=== PATIENT | female | born 1945 | race Caucasian/White ===

== ENCOUNTER → 2017-05-14 10:40 | Outpatient (CLI) | payer MEDICARE, SELFPAY ==
[2017-05-14 11:50] LABS: Microalbumin,Random Urine 27.3 mg/L (NO RANGE EST.); Microalbumin:Creatinine Ratio 19.1 mg/g CRE (<30 mg/g CRE)
[2017-05-14 11:53] LABS: Hemoglobin A1c 5.7 % (4.2-6.3)
[2017-05-14 12:00] LABS: Anion Gap 6 (5-15); BUN 20 mg/dL (7-18); BUN/Creat Ratio 24.2 RATIO (10-20); Calcium,Total 8.8 mg/dL (8.5-10.1); Chloride 108 mmol/L (98-107); Cholesterol 240 mg/dL (200); Creatinine, Serum 0.83 mg/dL (0.55-1.02); EST Glomerular Filtration Rate 72 mL/min (>60); Est Glom Filt Rate - Afr Amer 87 mL/min (>60); Glucose 95 mg/dL (74-106); High Density Lipoprotein 63 mg/dL; Potassium 3.8 mmol/L (3.5-5.1); Sodium Level 143 mmol/L (136-145); Thyroid Stim Hormone (TSH) 2.31 uIU/mL (0.358-3.74); Triglycerides 85 mg/dL; Very Low Density Lipoprotein 17 mg/dL (5-40)
== END ==
PROVIDERS: Family Provider Family Medicine; PCP Family Medicine; Visit Provider Family Medicine
DX: E11.9 Type 2 diabetes mellitus without complications (principal); Z79.899 Other long term (current) drug therapy; E78.2 Mixed hyperlipidemia
CPT/HCPCS: 36415; 80048; 80061; 82043; 82570; 83036; 84443

== ENCOUNTER → 2017-05-25 16:21 | Outpatient (CLI) | payer MEDICARE, SELFPAY ==
--- NOTE | 2017-05-25 16:41 | MRI_ITS ---
STUDY: MRI THORACIC SPINE WITHOUT CONTRAST REASON FOR EXAM: Female, 71 years old. Upper back pain TECHNIQUE: Standardized fat and water weighted pulse sequences were obtained in the sagittal and axial planes. COMPARISON: None. FINDINGS: Normal kyphosis of the thoracic spine. There is no substantial scoliosis. No evidence for acute fracture or subluxation. The intervertebral disc space heights are fairly well-maintained however there is desiccation of the discs at all levels secondary to degeneration. There is mild multilevel bulging of the discs but no focal disc protrusion spinal stenosis or cord compression. Normal visualized thoracic cord. Normal conus medullaris that terminates at T12-L1 The soft tissue structures are unremarkable. MRI/Spine Thoracic (Routine) IMPRESSION: No evidence for acute fracture or other significant bony pathology. Multilevel disc degeneration and mild bulging of the annuli without focal disc protrusion spinal stenosis or cord compression. Electronically Signed: Jeremy Gonzalse MD at 17:46 EDT , Service support ,
== END ==
PROVIDERS: Family Provider Family Medicine; PCP Family Medicine; Visit Provider Anesthesiology Pain Medicine
DX: M47.814 Spondylosis without myelopathy or radiculopathy, thoracic region (principal)
CPT/HCPCS: 72146

== ENCOUNTER → 2017-07-21 09:37 | Outpatient (CLI) | payer MEDICARE, SELFPAY ==
--- NOTE | 2017-07-21 09:23 | BD_ITS ---
STUDY: DUAL ENERGY X-RAY ABSORPTIOMETRY / DXA REASON FOR EXAM: Female, 72 years old. Type II diabetic postmenopausal female. Takes Fosamax. TECHNIQUE: Bone Mineral Density (BMD) measurements of lumbar spine and bilateral hips were obtained. COMPARISON: February 13, 2013. FINDINGS: Lumbar Spine (L1-L4): g/cm2 (1.235) / T-score (0.5) / Z-score (2.2) Findings are suggestive of PICC line with a low fracture risk. Left Femur Total: g/cm2 (0.901) / T-score (0.8) / Z-score (0.7) Left Femoral Neck: g/cm2 (0.796) / T-score (-1.7) / Z-score (0.0) Right Femur Total: g/cm2 (0.915) / T-score (-0.7) / Z-score (0.8) Right Femoral Neck: g/cm2 (0.739) / T-score (-2.1) / Z-score (-0.4) The T-Scores on the most recent prior examination were: Lumbar Spine (L1-L4): There has been improvement of bone density since the previous examination of 12%. Left Femur Total: There is no improvement in the bone mineral density of 11.9% since the prior study. Right Femur Total: There is improvement of the bone mineral density of 9.2% since the prior study. BD/Dexa Bone Density Study IMPRESSION: The patient is considered osteopenic as outlined below according to World Bub[employer] Organization (WHO) criteria with a moderate fracture risk. There has been improvement of bone density since the previous examination. Reference Information: The T-score is the number of standard deviations above or below the standard which is normal for young adults at their peak bone mineral density. The World Health Organization (WHO) interprets the T-scores as follows: Above -1 Normal bone density Between -1 and -2.5 Osteopenia Equal to / or below -2.5 Osteoporosis As a practical clinical guideline, osteopenia may be graded as follows: Mild -1 through -1.5 Moderate -1.6 through -2.0 Severe -2.1 through -2.4 The Z-score is the number of standard deviations above or below age-matched controls. A Z-score of less than -1.5 would be considered abnormal. References: 1. NIH Osteoporosis and Related Bone Diseases http://www.osteo.org 2. International Society for Clinical Densitometry http://www.iscd.org 3. National Osteoporosis Foundation http://www.nof.org Electronically Signed: Lee Steward DO at 10:52 EDT Tel [phone], Service support ,
--- NOTE | 2017-07-21 09:35 | BI_ITS ---
MAMMOGRAPHY - BILATERAL SCREENING REASON FOR EXAM: Female, 72 years old. Routine annual screening examination. PERTINENT HISTORY: Non-contributory. TECHNIQUE: Digital bilateral breast nettie (3D mammographic acquisition) in the CC and MLO projections. 2-D mediolateral oblique (MLO) and craniocaudad (CC) views of both breasts were obtained. CAD: Full Field Digital Mammography with Computer Added Detection was performed. COMPARISON: Comparison is made with prior study dated June 15, 2016 and July 20, 2015. FINDINGS: Breast Composition: There are scattered areas of fibroglandular density. There are no dominant masses or suspicious calcifications. No other significant abnormalities are identified. There has been no significant change since the prior study. BI/SCREENING MAMM (CAD), BILAT IMPRESSION: Stable bilateral screening mammogram. Yearly follow-up mammogram recommended. (A) ASSESSMENT CATEGORY: BIRADS Category 1: Negative. A letter regarding these results will be sent to the patient by the facility within 30 days. Approximately 10% of breast cancers are not detected by mammography. A normal mammogram should not delay biopsy of a clinically suspicious abnormality. [id number] Electronically Signed: Smith Ceballos MD at 8:21 EDT Tel [phone], Service support ,
--- NOTE | 2017-07-21 09:37 | DT_ITS ---
This patient was seen during an EMR downtime July 18, 2017 - July 25, 2017. This patient may have a combination of paper and electronic documentation or all paper documentation. All documentation is viewable within the e-chart portion of [facility] for each patient visit.
== END ==
LOC: OPBI 07-28 13:54 → OPBD 07-28 13:54
PROVIDERS: Family Provider Family Medicine; PCP Family Medicine; Visit Provider Family Medicine
DX: M81.0 Age-related osteoporosis without current pathological fracture (principal); Z12.31 Encounter for screening mammogram for malignant neoplasm of breast
CPT/HCPCS: 77063; 77067; 77080

== ENCOUNTER 2017-08-14 20:33 | Observation (INO) | payer MEDICARE, SELFPAY ==
[2017-08-14 20:34] VITALS: BP 182/96; PULSE 90; PULSE 95; RESP 14; RESP 18; TEMP 36.8; O2SAT 98; BMI 37.0
--- NOTE | 2017-08-14 20:34 | ED.RN ---
CALLED FOR EKG PER RN REQUEST, PULLED OLD EKG'S FOR
--- NOTE | 2017-08-14 20:46 | EKG12_ITS ---
Test Reason : ADMIN Blood Pressure : / mmHG Vent. Rate : 099 BPM Atrial Rate : 099 BPM P-R Int : 128 ms QRS Dur : 096 ms QT Int : 346 ms P-R-T Axes : 039 005 059 degrees QTc Int : 444 ms Normal sinus rhythm Nonspecific ST abnormality Abnormal ECG When compared with ECG of 02-FEB-2012 10:26, No significant change was found Confirmed by POOJA LUNA, RAFAEL ([id number]), kettle fry cook operator MAYRA MELGOZA ([id number]) on 08/18/2017 3:55:01 PM Referred By: PETE Confirmed By:RAFAEL PATTON MD
--- NOTE | 2017-08-14 20:48 | RAD_ITS ---
STUDY: X-RAY CHEST REASON FOR EXAM: Female, 72 years old. Chest and left arm pain. TECHNIQUE: Single frontal view of the chest. COMPARISON: February 13, 2013 FINDINGS: There is low volume inspiration with a mild diffuse interstitial pattern unchanged. There are no focal consolidations. There is no demonstrated pleural abnormality. There is borderline cardiomegaly unchanged. Normal mediastinum and chelsie. Normal visualized pulmonary arteries. There is aortic tortuosity with calcification unchanged. Normal visualized thoracic spine. Normal visualized ribs, clavicles, and shoulders. There is no demonstrated abnormality of the visualized soft tissue structures of the upper abdomen. RAD/Chest 1 View (Portable) IMPRESSION: Stable appearance of the chest with no significant new or acute pathology. Electronically Signed: Mainor Hastings MD at 21:12 EDT , Service support ,
[2017-08-14] MEDS: Aspirin 81 MG TAB.CHEW 324 MG PO (21:10)
[2017-08-14 21:12] VITALS: BP 145/92; PULSE 90
[2017-08-14 21:16] VITALS: BP 140/68; PULSE 104
[2017-08-14 21:17] LABS: Anion Gap 7 (5-15); BUN 37 mg/dL (7-18); BUN/Creat Ratio 37.6 RATIO (10-20); Calcium,Total 8.8 mg/dL (8.5-10.1); Chloride 104 mmol/L (98-107); Creatinine, Serum 0.98 mg/dL (0.55-1.02); EST Glomerular Filtration Rate 59 mL/min (>60); Est Glom Filt Rate - Afr Amer 72 mL/min (>60); Estimated Creatinine Clearance 39.16 ml/min; Glucose 99 mg/dL (74-106); Sodium Level 140 mmol/L (136-145)
[2017-08-14 21:21] VITALS: BP 133/67; PULSE 108
--- NOTE | 2017-08-14 21:34 | ED.VISSUMM ---
- ER Visit Summary Date of Service: 08/14/17 Chief Complaint: Chest pain History of Present Illness: The patient is a 72 F who presents with chest pain that began today. Patient states the pain began in her left shoulder and has migrated to the upper chest in the midline. Patient describes the pain as a dull ache. Patient states the pain began approximate 1 hour prior to arrival. Patient states she was sitting and watching TV when the pain began. Patient states she did have an episode of diaphoresis. Patient denies any nausea or vomiting. Patient denies any shortness of breath. Patient denies any cough or fever. Patient states nothing makes the pain better or worse. Cardiac risk factors include hypertension, diabetes, hypercholesterolemia, and family history of coronary artery disease. Physical Examination: Vital signs are stable. Patient is afebrile. Patient is in no acute distress. Oral mucosa is pink and moist. Neck is supple. Trachea is midline. There is no JVD noted. Heart was regular rate and rhythm. Lungs are clear and equal bilaterally. Abdomen is soft and nontender. Cranial nerves II through XII are intact. There are no focal motor or sensory deficits noted. The remaining physical exam is within normal limits. Test Results: EKG showed normal sinus rhythm with a rate of 94. There are nonspecific ST-T wave changes noted. There are no changes compared to previous EKG dated 02/02/2012. Chest x-ray does not show any acute cardiopulmonary process. CBC, basic metabolic profile, and troponin were obtained and were essentially within normal limits. Emergency Department Course and Treatment: Patient was given aspirin and 3 sublingual nitroglycerin tablets here. Patient states her chest pain actually got worse after the nitroglycerin. Patient also complained of a headache after that. Patient was given Tylenol. Patient states her chest pain has moved from her upper chest to her middle chest. Patient was given injection of morphine for that. Patient has a HEART score of 6. Case was discussed with Dr. Stubbs. He will be in to evaluate the patient and admit the patient to the hospital. Disposition: Admit to the hospital Impression: Chest pain This note was generated with [employer] dictation software. It may contain incorrect words, spelling, and punctuation that were not noted in review of the chart prior to signing ED Disposition - Plan for ED Patient: Disposition: Acute Care Hospital [facility] Chief Complaint: Chest Pain Diagnosis: Chest pain Referrals: Zia Bolden MD [Primary Care Provider] -
--- NOTE | 2017-08-14 21:39 | ED.DCSUM_ITS ---
- ER Visit Summary Date of Service: 08/14/17 Chief Complaint: Chest pain History of Present Illness: The patient is a 72 F who presents with chest pain that began today. Patient states the pain began in her left shoulder and has migrated to the upper chest in the midline. Patient describes the pain as a dull ache. Patient states the pain began approximate 1 hour prior to arrival. Patient states she was sitting and watching TV when the pain began. Patient states she did have an episode of diaphoresis. Patient denies any nausea or vomiting. Patient denies any shortness of breath. Patient denies any cough or fever. Patient states nothing makes the pain better or worse. Cardiac risk factors include hypertension, diabetes, hypercholesterolemia, and family history of coronary artery disease. Physical Examination: Vital signs are stable. Patient is afebrile. Patient is in no acute distress. Oral mucosa is pink and moist. Neck is supple. Trachea is midline. There is no JVD noted. Heart was regular rate and rhythm. Lungs are clear and equal bilaterally. Abdomen is soft and nontender. Cranial nerves II through XII are intact. There are no focal motor or sensory deficits noted. The remaining physical exam is within normal limits. Test Results: EKG showed normal sinus rhythm with a rate of 94. There are nonspecific ST-T wave changes noted. There are no changes compared to previous EKG dated 02/02/2012. Chest x-ray does not show any acute cardiopulmonary process. CBC, basic metabolic profile, and troponin were obtained and were essentially within normal limits. Emergency Department Course and Treatment: Patient was given aspirin and 3 sublingual nitroglycerin tablets here. Patient states her chest pain actually got worse after the nitroglycerin. Patient also complained of a headache after that. Patient was given Tylenol. Patient states her chest pain has moved from her upper chest to her middle chest. Patient was given injection of morphine for that. Patient has a HEART score of 6. Case was discussed with Dr. Stubbs. He will be in to evaluate the patient and admit the patient to the hospital. Disposition: Admit to the hospital Impression: Chest pain This note was generated with [employer] dictation software. It may contain incorrect words, spelling, and punctuation that were not noted in review of the chart prior to signing ED Disposition - Plan for ED Patient: Disposition: Acute Care Hospital [facility] Chief Complaint: Chest Pain Diagnosis: Chest pain Referrals: Zia Bolden MD [Primary Care Provider] -
[2017-08-14 22:27] LABS: Absolute Lymphocyte Count 2.54 X10^3/ul (0.83-4.51); Absolute Neutrophil Count 5.3 X10^3/uL (2.0-7.7); Basophil# 0.02 X10^3/uL; Basophil% 0.2 % (0-1); Eosinophil# 0.12 X10^3/uL; Eosinophils% 1.4 % (0-5); Hematocrit 37.1 % (37-47); Hemoglobin 12.1 g/dl (12.0-15.0); Lymphocyte # 2.54 X10^3/ul (4.0); Lymphocyte % 28.6 % (19-41); Mean Corp Hgb Conc 32.6 g/gl (32-36); Mean Corpuscular Hgb 29.8 pg (27.0-32.0); Mean Corpuscular Volume 91.4 fL (81-99); Monocyte# 0.86 X10^3/uL; Monocyte% 9.7 % (0-10); Neutrophil # 5.31 X10^3/uL (2.7-7.7); Neutrophil % 59.9 % (47-70); Platelet Count 274 K/mm3 (150-450); RBC Distribution Width CV 15.5 % (11.6-14.6); RBC Distribution Width SD 52.1 fl (35.1-43.9); Red Blood Count 4.06 M/mm3 (4.2-5.4); White Blood Count 8.9 K/mm3 (4.4-11.0)
[2017-08-14 22:28] LABS: POSITIVE COUNT NO; POSITIVE DIFFERENTIAL NO; POSITIVE MORPHOLOGY NO
[2017-08-14] MEDS: Acetaminophen 500 MG Tablet 1000 MG PO (22:28)
[2017-08-14] MEDS: Morphine 2 MG/ML Syringe IV (23:12)
[2017-08-14 23:14] VITALS: BP 153/79; PULSE 100; RESP 19; O2SAT 96
--- NOTE | 2017-08-14 23:43 | PCM.HP.STD ---
Problem List (1) Chest pain Status: Acute Qualifiers: Chest pain type: precordial pain Qualified Code(s): R07.2 - Precordial pain History of Present Illness Date of Admission: 08/14/17 Chief Complaint: Precordial chest pain, left shoulder pain The patient is a 72 year old F who was seen in the emergency room at [facility] with complaints of left shoulder pain which started about approximately 7:30 PM tonight while at rest, the pain went into her upper precordial chest area, she describes the pain as being dull, breathing makes it worse, is not affected by position, it was not affected by activity. Patient denies any radiation into her neck or down her arms although she does state that it radiated into her upper mid back area briefly. Patient had a cardiac catheterization 4 years ago that was completely unremarkable, there is no evidence of any coronary artery disease at the time of that catheterization. It was never determined why the patient had chest pain at that time. Patient states she has had one other episode of chest pain recently while she was going to sleep but it was not the same intensity as the chest pain this evening. Evaluation in the emergency room included an EKG which showed normal sinus rhythm without evidence of ST-T wave changes, labs were remarkable for BUN of 37, troponin was 0.015, chest x-ray was unremarkable. Patient was given nitroglycerin in the emergency room without affecting the chest discomfort, it did cause a severe headache however, she was given morphine which seemed to relieve some of the chest discomfort. On physical examination in the ER, I was able to reproduce some of the chest pain by pressing on her mid chest area with my hand. Patient will be placed in observation status for chest pain, cardiac enzymes will be cycled, if they remain normal she will have a pharmacological stress test tomorrow morning. Past Medical History Allergies hydrocodone Allergy (Verified 08/14/17 20:34) Other metronidazole [From Flagyl] Allergy (Verified 08/14/17 20:34) Other Home Medications: Ambulatory Orders Medication Instructions Recorded Alendronate Sodium [Fosamax] 70 mg PO QWEEK 08/14/17 Gabapentin [Neurontin] 300 mg PO DAILY 08/14/17 Hydrochlorothiazide [Hctz] 25 mg PO DAILY 08/14/17 Lisinopril 20 mg PO DAILY 08/14/17 Meloxicam 15 mg PO DAILY 08/14/17 Omeprazole 20 mg PO DAILY 08/14/17 Rosuvastatin Calcium [Crestor] 20 mg PO DAILY 08/14/17 Tramadol HCl [Ultram] 50 mg PO BID 08/14/17 Surgical History: - - D and C Psychiatric History: No pertinent psych hx [employer] [place] History: No pertinent [employer] [place] history Lives: Spouse/ Significant Other Smoking Status: Never smoker Tobacco Use: Non-smoker Alcohol: None Drugs: None - *Family History Maternal History Items: Cancer - Colon cancer Paternal History Items: Heart Disease - from [place] at age 57 Review of Systems Constitutional: Denies: Anorexia, Chills, Fever, Night Sweats, Malaise, Weakness, Weight Change, Fatigue Eyes: Denies: Blurred vision, Cataracts, Conjunctivae Inflammation, Double vision, Drainage HEENT: Denies: Difficulty Hearing, Difficulty Swallowing, Dysphasia, Ear Pain, Eye Pain, Head Aches, Hearing Changes, Nasal bleeding, Nasal Congestion, Post Nasal Drip Cardiovascular: Reports: Chest Pain. Denies: Claudication, Chest Pressure, Chest Tightness, Edema, Heaviness, Light Headedness, Palpitations, Paroxysmal Noc. Dyspnea, Syncope Respiratory: Reports: Pleuritic Pain - Patient states the chest pain is made worse by deep breathing. Denies: Cough, Hemoptysis, Shortness of Breath, Shortness of breath at rest, Shortness of breath upon exertion, Sputum production, Wheezing Gastrointestinal: Denies: Abdominal Pain, Constipation, Diarrhea, Hematemesis, Hematochezia, Nausea, Melena, Vomiting Genitourinary: Denies: Dysuria, Frequency, Hematuria, Hesitancy, Incontinence, Nocturia, Urgency Gynecological: Denies: Breast symptoms Musculoskeletal: Reports: Back Pain - She has chronic upper and lower back pain. Denies: Foot Pain, Hand Pain, Joint Pain, Joint stiffness, Joint swelling, Joint Tenderness, Leg Pain, Neck Pain Skin: Denies: Dryness, Pruritis, Rash Neurological: Denies: Balance problems, Blurred vision, Double vision, Slurred speech, Difficulty swallowing, Focal weakness, Headaches, Incoordination, Numbness, Tingling Psychiatric: Denies: Anxiety, Depression, Homicidal Ideations, Suicidal Ideations Endocrine: Denies: Change in Body Habitus, Heat/ Cold Intolerance, Polydipsia, Polyuria Hematologic/ Lymphatic: Denies: Adenopathy, Anemia, Easy Bruising, Easy Bleeding, Petechiae, Purpura VTE Information - Inpt Only VTE Present on Admission: No VTE Mechan Device Prophylaxis: SCD's VTE Pharm Prophylaxis ordered?: No Reason prophylaxis not ordered:: Treatment Not Indicated Patient Problems: Active and Suspected Problems Chest pain (Acute) - Physical Exam General: Alert, Oriented x3, Cooperative, No apparent distress, Well developed, Well nourished HEENT: Atraumatic, PERRLA, EOMI, Normocephalic Oral: Moist Mucosa Neck: Supple, No JVD, Negative Carotid Bruits, No Nuchal Rigidity, Trachea Midline, Thyroid Normal Size and Texture Lungs: Clear to auscultation, Normal air movement, No rhonchi, No wheeze, No rales Cardiovascular: Regular rate, Regular Rhythm, Normal S1, Normal S2, No murmurs, No Ectopic Activity, PMI Normal, No rub noted, No Gallop Abdomen: Bowel Sounds Present, Soft, Non Tender, Non-Distended, No hernias noted Extremities: No clubbing, No cyanosis, No edema, Capillary Refill Less than 3 Seconds Skin: No rashes, No breakdown Musculoskeletal: Arthritic Changes - In the hands, Tenderness - There is tenderness over the upper sternal area to pressure Neurological: Cranial nerves II-XII grossly intact, Neuro grossly intact, Muscle tone normal, Sensory exam intact to light touch and pain Psych/Mental Status: Normal Affect, Appropriate, Alert and oriented to time, place, person, mood and affect Vital Signs Temp Pulse Resp BP Pulse Ox 98.2 F 100 19 H 153/79 H 96 08/14/17 20:34 08/14/17 23:14 08/14/17 23:14 08/14/17 23:14 08/14/17 23:14 Oxygen Flow Rate (L/min) 2 Oxygen Delivery Method Room Air Weight: 89.1 kg Body Mass Index (BMI) 37.0 Laboratory Tests Past 24 Hrs 08/14/17 08/14/17 20:40 20:40 WBC 8.9 RBC 4.06 L Hgb 12.1 Hct 37.1 MCV 91.4 MCH 29.8 MCHC 32.6 RDW 15.5 H RDW Differential 52.1 H Plt Count 274 MPV 11.0 Immature Gran % (Auto) 0.200 Neut % (Auto) 59.9 Lymph % (Auto) 28.6 [place] % (Auto) 9.7 Eos % (Auto) 1.4 Baso % (Auto) 0.2 Absolute Neuts (auto) 5.3 Absolute Lymphs (auto) 2.54 Total Counted Not Reportable Sodium 140 Potassium 4.0 Chloride 104 Carbon Dioxide 29.0 Anion Gap 7 BUN 37 H Creatinine 0.98 Estim Creat Clear Calc 39.16 Est GFR (MDRD) Af Amer 72 Est GFR (MDRD) Non-Af 59 L BUN/Creatinine Ratio 37.6 H Glucose 99 Calcium 8.8 Troponin I < 0.015 Assessment/Plan All Active Problems Chest pain (Acute) #1 precordial chest pain-appears atypical for anginal chest pain-patient will be placed in observation status on PCU, enzymes will be cycled, she will be monitored, if enzymes remain normal she will have a pharmacological nuclear stress test tomorrow morning. Patient's chest pain complaints appear at least partially pleuritic in nature. Patient also has significant degenerative disc disease in her thoracic spine and this may be playing a part in her chest discomfort. 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
[2017-08-14 23:53] VITALS: BP 139/69; PULSE 95; RESP 14; O2SAT 95
--- NOTE | 2017-08-14 23:55 | NURSING ---
Called ED charge nurse Rob telling him OK to send pt. to PCU. Requested that he draw second troponin prior to sending to PCU as it was due at 2340. oRb verbalized understanding and will draw troponin.
[2017-08-15] VITALS (7 sets, daily range): BP systolic 136–148; BP diastolic 64–89; PULSE 88–104; RESP 16–18; TEMP 36.9; O2SAT 96–99; BMI 37.6; BMI 37.7
--- NOTE | 2017-08-15 02:00 | EKG12_ITS ---
Test Reason : CP Blood Pressure : / mmHG Vent. Rate : 094 BPM Atrial Rate : 094 BPM P-R Int : 146 ms QRS Dur : 102 ms QT Int : 384 ms P-R-T Axes : 041 017 049 degrees QTc Int : 480 ms Normal sinus rhythm Nonspecific ST abnormality Abnormal ECG Confirmed by POOJA LUNA, RAFAEL ([id number]), scientific editor MAYRA MELGOZA ([id number]) on 08/18/2017 3:49:30 PM Referred By: ANITA Confirmed By:RAFAEL PATTON MD
[2017-08-15] MEDS: Atorvastatin Calcium 40 MG Tablet PO (02:43)
[2017-08-15] MEDS: Lisinopril 20 MG Tablet PO (05:57)
[2017-08-15 06:20] LABS: Absolute Neutrophil Count 9.7 X10^3/uL (2.0-7.7); Basophil# 0.02 X10^3/uL; Basophil% 0.2 % (0-1); Eosinophil# 0.07 X10^3/uL; Eosinophils% 0.5 % (0-5); Hematocrit 35.8 % (37-47); Hemoglobin 11.8 g/dl (12.0-15.0); Lymphocyte % 10.8 % (19-41); Mean Corpuscular Volume 91.1 fL (81-99); Mean Platelet Vol. 11.5 fl (6.2-12.0); Monocyte# 1.75 X10^3/uL; Monocyte% 13.5 % (0-10); Neutrophil # 9.73 X10^3/uL (2.7-7.7); Neutrophil % 74.7 % (47-70); Platelet Count 214 K/mm3 (150-450); Red Blood Count 3.93 M/mm3 (4.2-5.4)
[2017-08-15 06:26] LABS: Differential Indicated SCAN CRITERIA MET; POSITIVE COUNT NO; POSITIVE DIFFERENTIAL YES; POSITIVE MORPHOLOGY NO
[2017-08-15 06:31] LABS: Anion Gap 9 (5-15); BUN 33 mg/dL (7-18); BUN/Creat Ratio 41.4 RATIO (10-20); Calcium,Total 8.7 mg/dL (8.5-10.1); Chloride 108 mmol/L (98-107); EST Glomerular Filtration Rate 75 mL/min (>60); Est Glom Filt Rate - Afr Amer 91 mL/min (>60); Estimated Creatinine Clearance 47.97 ml/min; Glucose 101 mg/dL (74-106); Potassium 4.2 mmol/L (3.5-5.1); Sodium Level 144 mmol/L (136-145)
[2017-08-15 06:34] LABS: Partial Thromboplast Time 28.8 Seconds (24.1-36.2); Prothrombin Time (Protime)PT. 12.9 SECONDS (11.7-14.9)
[2017-08-15 07:15] LABS: Differential Comment SCANNED
[2017-08-15] MEDS: hydroCHLOROthiazide 25 MG Tablet PO (09:30)
[2017-08-15] MEDS: Pantoprazole Sodium 20 MG Tablet PO (09:30)
[2017-08-15] MEDS: traMADol 50 MG Tablet PO (09:30)
--- NOTE | 2017-08-15 09:54 | STRESSREP ---
Stress Test Report Pharmacologic myocardial perfusion stress test. 72-year-old lady with a history of atypical chest pain with respiration. Medications Lipitor hydrochlorothiazide lisinopril. Stress protocol: Resting EKG demonstrates normal sinus rhythm with a rate of 93 bpm normal intervals and noted resting blood pressure is 140/84 mmHg. 0.4 mg of regadenoson was infused per usual protocol followed by rapid intravenous saline flush injection continuous EKG monitoring was performed. Patient maintained sinus rhythm throughout the recording. At rest there were nonspecific ST-T wave changes noted at peak infusion there is mildly downsloping ST depression less than 1 mm noted in leads II, III and aVF. The patient also complained of chest discomfort which appeared to be worse with inspiration. The maximum heart rate attained was 139 bpm which was 93% maximum predicted heart rate the maximum workload attained was 1 metabolic equivalent. Myocardial perfusion protocol. 14.1 mCi of technetium 99m sestamibi was injected at rest. 0.4 mg of regadenoson was infused per usual protocol. Peak infusion 43.4 mCi of technetium 99m sestamibi was injected stress images were obtained stress and rest images were reconstructed and compared in the short axis vertical long and horizontal long axis. Gated images were also obtained pre- Perfusion SPECT analysis: Review of the stress images demonstrate normal uptake of tracer noted in all areas of the myocardium. The resting images similarly demonstrate normal uptake of tracer noted in all areas of the myocardium. No areas of reversibility are noted suggest ischemia and no previous infarct is noted. Gated SPECT analysis: The gated ejection fraction is over 80%. Conclusion: Normal pharmacologic myocardial perfusion stress test. Preserved ejection fraction.
--- NOTE | 2017-08-15 11:44 | PCM.DC ---
- Discharge Diagnoses Current Active Problems: Current Active and Chronic Problems Chest pain (Acute) You will use the following diet at home:: No restrictions Your food should be the consistency of: Regular Discharge Activity: Return to Normal Activity, No Restrictions Instructions: ED Chest Pain NonCardiac Allergies/Adverse Reactions: Allergies hydrocodone Allergy (Verified 08/14/17 20:34) Other metronidazole [From Flagyl] Allergy (Verified 08/14/17 20:34) Other Medications to take at Discharge Alendronate Sodium [Fosamax] 70 mg PO QWEEK 08/14/17 Gabapentin [Neurontin] 300 mg PO DAILY 08/14/17 Hydrochlorothiazide [Hctz] 25 mg PO DAILY 08/14/17 Lisinopril 20 mg PO DAILY 08/14/17 Omeprazole 20 mg PO DAILY 08/14/17 Rosuvastatin Calcium [Crestor] 20 mg PO QHS 08/14/17 Tramadol HCl [Ultram] 50 mg PO BID 08/14/17 Acetaminophen [Extra Strength Non-Aspirin] 1,000 mg PO TID PRN #1 tablet 08/15/17 Ibuprofen 600 mg PO Q6H PRN #1 tablet 08/15/17 Melatonin 10 mg PO QHS 08/15/17 Meloxicam 15 mg PO DAILY #0 08/15/17 The following prescriptions were given: Ibuprofen 600 mg PO Q6H PRN #1 tablet PRN Reason: Pain Acetaminophen [Extra Strength Non-Aspirin] 1,000 mg PO TID PRN #1 tablet PRN Reason: Pain Primary Care Physician: Zia Bolden MD [Primary Care Provider] - Within 2 Weeks Test Results: Proposed Discharge Date: 08/15/17
--- NOTE | 2017-08-15 11:45 | PCM.DC.SUM ---
Discharge Date and Diagnosis - Problem List Patient Problems: Active and Suspected Problems Chest pain (Acute) Date of Admission: 08/14/17 Date of Discharge: 08/15/17 - Primary Discharge Diagnosis Active and Suspected Problems Chest pain (Acute) Hospital Course and Treatment Imaging Results: 08/15/17 05:55 Nuclear Stress Test - Chemical [NM] AM (NON MEDS) Clinical Impression(s) from Imaging Studies Chest X-Ray 08/14/17 20:48 IMPRESSION: Stable appearance of the chest with no significant new or acute pathology. Electronically Signed: Mainor Hastings MD at 21:12 EDT , Service support , Operations: None Procedures: Stress test Summary of Care Provided: The patient is a 72 year old F presents with midsternal chest pain. Patient that her chest pain or migrate to her shoulder across her chest and upper jaw. Patient did have a reproducible component. Patient underwent cardiac workup with troponins and stress test. This test came back negative. Patient has been told that this is previously been pleurisy. Patient did undergo a left heart catheterization 4 years ago that showed clean coronaries. Patient stated that she had a similar episode when her mother was dying. I told the patient that this could be musculoskeletal less likely pleurisy but also did mention that could be panic attacks as well. Informed her that that she does not require any additional cardiac workup. I did state that if this is costochondritis that she could take an NSAID such as ibuprofen. I did tell her that she does take that she would need to hold OxyContin for those days. Reassurance is provided to the patient though the cardiac workup is negative and has previously been negative. Should be noted also that patient has undergone in May of this year. Physical exam Vital Signs Height 1.55 m Weight: 90.4 kg Weight in Pounds 199.3 lbs Pulse Ox 99 Temperature 36.9 C Pulse Rate 100 Respiratory Rate 16 Blood Pressure 136/64 Blood Pressure Position Supine Patient is no acute distress and afebrile. Heart is regular rate and rhythm plus S1-S2 with a murmurs capture rubs. Patient does have reproducible anterior chest wall tenderness. [] Discharge Diet: No Restrictions Discharge Activity: Return to Normal Activity, No Restrictions Home Medications: Medications to take at Discharge Alendronate Sodium [Fosamax] 70 mg PO QWEEK 08/14/17 Gabapentin [Neurontin] 300 mg PO DAILY 08/14/17 Hydrochlorothiazide [Hctz] 25 mg PO DAILY 08/14/17 Lisinopril 20 mg PO DAILY 08/14/17 Omeprazole 20 mg PO DAILY 08/14/17 Rosuvastatin Calcium [Crestor] 20 mg PO QHS 08/14/17 Tramadol HCl [Ultram] 50 mg PO BID 08/14/17 Acetaminophen [Extra Strength Non-Aspirin] 1,000 mg PO TID PRN #1 tablet 08/15/17 Ibuprofen 600 mg PO Q6H PRN #1 tablet 08/15/17 Melatonin 10 mg PO QHS 08/15/17 Meloxicam 15 mg PO DAILY #0 08/15/17 Following Prescrptions Were Given to Patient: Ibuprofen 600 mg PO Q6H PRN #1 tablet PRN Reason: Pain Acetaminophen [Extra Strength Non-Aspirin] 1,000 mg PO TID PRN #1 tablet PRN Reason: Pain Primary Care Physician: Zia Bolden MD [Primary Care Provider] - Within 2 Weeks Patient Instructions: ED Chest Pain NonCardiac Disposition: Home Minutes spent on discharge:: 26 Patient Condition:: Good Medical Necessity - Tobacco Use Smoking Status: Never smoker Tobacco Use: Non-smoker Meaningful Use Info Meaningful Use Diagnoses (Choose all that apply): None applicable Code Visit OBSV E&M: 91203 Observation care discharge
--- NOTE | 2017-08-15 11:48 | DS.PCM_ITS ---
Discharge Date and Diagnosis - Problem List Patient Problems: Active and Suspected Problems Chest pain (Acute) Date of Admission: 08/14/17 Date of Discharge: 08/15/17 - Primary Discharge Diagnosis Active and Suspected Problems Chest pain (Acute) Hospital Course and Treatment Imaging Results: 08/15/17 05:55 Nuclear Stress Test - Chemical [NM] AM (NON MEDS) Clinical Impression(s) from Imaging Studies Chest X-Ray 08/14/17 20:48 IMPRESSION: Stable appearance of the chest with no significant new or acute pathology. Electronically Signed: Mainor Hastings MD at 21:12 EDT , Service support , Operations: None Procedures: Stress test Summary of Care Provided: The patient is a 72 year old F presents with midsternal chest pain. Patient that her chest pain or migrate to her shoulder across her chest and upper jaw. Patient did have a reproducible component. Patient underwent cardiac workup with troponins and stress test. This test came back negative. Patient has been told that this is previously been pleurisy. Patient did undergo a left heart catheterization 4 years ago that showed clean coronaries. Patient stated that she had a similar episode when her mother was dying. I told the patient that this could be musculoskeletal less likely pleurisy but also did mention that could be panic attacks as well. Informed her that that she does not require any additional cardiac workup. I did state that if this is costochondritis that she could take an NSAID such as ibuprofen. I did tell her that she does take that she would need to hold OxyContin for those days. Reassurance is provided to the patient though the cardiac workup is negative and has previously been negative. Should be noted also that patient has undergone in May of this year. Physical exam Vital Signs Height 1.55 m Weight: 90.4 kg Weight in Pounds 199.3 lbs Pulse Ox 99 Temperature 36.9 C Pulse Rate 100 Respiratory Rate 16 Blood Pressure 136/64 Blood Pressure Position Supine Patient is no acute distress and afebrile. Heart is regular rate and rhythm plus S1-S2 with a murmurs capture rubs. Patient does have reproducible anterior chest wall tenderness. [] Discharge Diet: No Restrictions Discharge Activity: Return to Normal Activity, No Restrictions Home Medications: Medications to take at Discharge Alendronate Sodium [Fosamax] 70 mg PO QWEEK 08/14/17 Gabapentin [Neurontin] 300 mg PO DAILY 08/14/17 Hydrochlorothiazide [Hctz] 25 mg PO DAILY 08/14/17 Lisinopril 20 mg PO DAILY 08/14/17 Omeprazole 20 mg PO DAILY 08/14/17 Rosuvastatin Calcium [Crestor] 20 mg PO QHS 08/14/17 Tramadol HCl [Ultram] 50 mg PO BID 08/14/17 Acetaminophen [Extra Strength Non-Aspirin] 1,000 mg PO TID PRN #1 tablet Ibuprofen 600 mg PO Q6H PRN #1 tablet 08/15/17 Melatonin 10 mg PO QHS 08/15/17 Meloxicam 15 mg PO DAILY #0 08/15/17 Following Prescrptions Were Given to Patient: Ibuprofen 600 mg PO Q6H PRN #1 tablet PRN Reason: Pain Acetaminophen [Extra Strength Non-Aspirin] 1,000 mg PO TID PRN #1 tablet PRN Reason: Pain Primary Care Physician: Zia Bolden MD [Primary Care Provider] - Within 2 Weeks Patient Instructions: ED Chest Pain NonCardiac Disposition: Home Minutes spent on discharge:: 26 Patient Condition:: Good Medical Necessity - Tobacco Use Smoking Status: Never smoker Tobacco Use: Non-smoker Meaningful Use Info Meaningful Use Diagnoses (Choose all that apply): None applicable Code Visit OBSV E&M: 76677 Observation care discharge
== END 2017-08-15 11:34 | disposition home or self-care (01) ==
LOC: ED 23:21 → PCU 23:51
PROVIDERS: Admitting Provider Internal Medicine; Emergency Provider Emergency Medicine; Family Provider Family Medicine; PCP Family Medicine
DX: R07.89 Other chest pain (principal); Z79.899 Other long term (current) drug therapy; E11.9 Type 2 diabetes mellitus without complications; I10 Essential (primary) hypertension; E78.5 Hyperlipidemia, unspecified; M47.9 Spondylosis, unspecified
CPT/HCPCS: 36415; 71045; 78452; 80048; 84484; 85025; 85610; 85730; 93005; 93017; 96374; 99218; 99284; A9500; A4216; G0378; J2785

== ENCOUNTER → 2017-08-30 21:58 | Outpatient (CLI) | payer MEDICARE, SELFPAY ==
[2017-08-30 22:10] LABS: Color, Urine Yellow (Yellow); Glucose, Dipstick Normal (Normal); Ketone-Dipstick Negative (Negative); Leukocyte Esterase-Dipstick 500 /ul (Negative); Nitrite-Dipstick Negative (Negative); Occult Blood-Urine 250 /ul (Negative); Protein-Dipstick 100 mg/dl (Negative); Specific Gravity, Urine 1.015 (1.002-1.030); Urine Bilirubin Dipstick Negative (Negative); Urine Clarity Sl. Cloudy (Clear); Urine Urobilinogen 1 mg/dl (Normal); Urine pH 6.5 (5.0 - 8.0)
[2017-08-30 22:19] LABS: Red Blood Cells-Urine 5-10 SEEN /hpf (0-5); Squamous Epithelial Cells - UA 0-5 SEEN /hpf (5-10); White Blood Cells 25-50 SEEN /hpf (0-5)
[2017-08-30 22:22] LABS: Bacteria 1+ /hpf (None Seen); Mucous, Urine RARE /hpf (<or=2+)
== END ==
PROVIDERS: Family Provider Family Medicine; PCP Family Medicine; Visit Provider Obstetrics & Gynecology
DX: N39.0 Urinary tract infection, site not specified (principal)
CPT/HCPCS: 81001; 87086; 87088

== ENCOUNTER → 2017-09-15 14:03 | Outpatient (CLI) | payer MEDICARE, SELFPAY ==
--- NOTE | 2017-09-15 14:10 | RAD_ITS ---
STUDY: X-RAY - RIGHT KNEE REASON FOR EXAM: Female, 72 years old. Knee pain TECHNIQUE: 4 view(s) of the knee. COMPARISON: None. FINDINGS: Normal visualized distal femur. Normal visualized proximal tibia and fibula. Normal proximal tibiofibular articulation. There is no demonstrated fracture. There is mild degenerative arthrosis of the medial femorotibial compartment. Normal lateral femorotibial compartment. There is mild degenerative arthrosis of the patellofemoral articulation. There is no demonstrated joint effusion. The soft tissue structures are unremarkable. RAD/Knee 3 Views IMPRESSION: Mild degenerative changes. No acute bony abnormality. Electronically Signed: Rogelio Hardy DO at 15:54 EDT Tel , Service support ,
--- NOTE | 2017-09-15 14:25 | RAD_ITS ---
STUDY: X-RAY - LUMBAR SPINE REASON FOR EXAM: Female, 72 years old. Low back pain TECHNIQUE: 5 view(s) of the lumbar spine were obtained. COMPARISON: 06/30/2015 FINDINGS: Normal lumbar lordosis. There is no substantial scoliosis. There is a normal alignment of the vertebrae. There is a transitional vertebral body at the lumbosacral junction, with partial sacralization of L5 on the right. There is disc space narrowing, endplate irregularity and sclerosis at T12-L1. Mild disc space narrowing is noted throughout the lumbar spine. Intradiscal calcifications are seen at L4-L5 and L5-S1. No acute fracture. No spondylolisthesis. There is atherosclerotic calcification of the abdominal aorta without a demonstrated aneurysm. RAD/L/S Spine Min 4 Views IMPRESSION: Degenerative changes, as detailed above. Electronically Signed: Rogelio Hardy DO at 15:57 EDT Tel , Service support ,
== END ==
PROVIDERS: Family Provider Family Medicine; PCP Family Medicine; Visit Provider Nurse Practitioner Family
DX: M25.561 Pain in right knee (principal)
CPT/HCPCS: 72110; 73562

== ENCOUNTER → 2018-01-03 16:03 | Outpatient (CLI) | payer MEDICARE, SELFPAY ==
[2017-08-15 02:03] VITALS: BMI 37.6
[2018-01-03 19:36] LABS: AST(SGOT) 22 U/L (15-37); Alanine Aminotransfer ALT/SGPT 25 U/L (13-56); Albumin, Serum 3.8 g/dL (3.2-5.0); Alkaline Phosphatase 67 U/L (45-117); Anion Gap 8 (5-15); BUN 26 mg/dL (7-18); BUN/Creat Ratio 31.2 RATIO (10-20); Calcium,Total 8.9 mg/dL (8.5-10.1); Chloride 103 mmol/L (98-107); Cholesterol 229 mg/dL (200); Creatinine, Serum 0.83 mg/dL (0.55-1.02); EST Glomerular Filtration Rate 71 mL/min (>60); Est Glom Filt Rate - Afr Amer 86 mL/min (>60); Globulin 3.8 g/dL (2.2-4.2); Glucose 57 mg/dL (74-106); High Density Lipoprotein 60 mg/dL; Potassium 3.9 mmol/L (3.5-5.1); Protein, Total 7.6 g/dL (6.4-8.2); Sodium Level 142 mmol/L (136-145); Triglycerides 102 mg/dL; Very Low Density Lipoprotein 20 mg/dL (5-40)
[2018-01-03 20:17] LABS: Microalbumin,Random Urine 17.6 mg/L (NO RANGE EST.); Microalbumin:Creatinine Ratio 7.3 mg/g CRE (<30 mg/g CRE)
== END ==
PROVIDERS: Family Provider Family Medicine; PCP Family Medicine; Referring Provider Family Medicine; Visit Provider Family Medicine
DX: E11.9 Type 2 diabetes mellitus without complications (principal)
CPT/HCPCS: 80053; 80061; 82043; 82570; 83036

== ENCOUNTER → 2018-08-07 12:56 | Outpatient (CLI) | payer MEDICARE, SELFPAY ==
--- NOTE | 2018-08-07 12:59 | BI_ITS ---
MAMMOGRAPHY - BILATERAL SCREENING 3-D TOMOSYNTHESIS REASON FOR EXAM: Female, 73 years old. Bilateral Screening 3-D tomosynthesis PERTINENT HISTORY: No significant family history. TECHNIQUE: 2-D mammograms and 3-D Tomosynthesis of the breast (s) were performed. CAD was performed. COMPARISON: July 21, 2017, June 15, 2016 FINDINGS: The breast composition is almost entirely fat. Scattered benign calcifications are seen. No dense spiculated masses or suspicious microcalcifications are identified. No architectural distortion is identified. There is no skin thickening or retraction. There has been no significant change since the prior study. BI/SCREEN MAMM (CAD) W/GIOVANNI BILAT IMPRESSION: No mammographic signs of malignancy. Routine yearly mammograms recommended. ASSESSMENT CATEGORY: BIRADS Category 2: Benign. A letter regarding these results will be sent to the patient by the facility within 30 days. FOLLOW UP RECOMMENDATION: Yearly follow up mammogram recommended. (A) Approximately 10% of breast cancers are not detected by mammography. A normal mammogram should not delay biopsy of a clinically suspicious abnormality. Electronically Signed: Mainor Hastings MD at 17:37 EDT , Service support ,
== END ==
PROVIDERS: Family Provider Family Medicine; PCP Family Medicine; Referring Provider Obstetrics & Gynecology; Visit Provider Obstetrics & Gynecology
DX: Z12.31 Encounter for screening mammogram for malignant neoplasm of breast (principal)
CPT/HCPCS: 77063; 77067

== ENCOUNTER → 2018-08-14 10:12 | Outpatient (CLI) | payer MEDICARE, SELFPAY ==
[2018-08-14 11:43] LABS: AST(SGOT) 20 U/L (15-37); Alanine Aminotransfer ALT/SGPT 19 U/L (13-56); Albumin, Serum 3.7 g/dL (3.2-5.0); Alkaline Phosphatase 61 U/L (45-117); Anion Gap 6 (5-15); BUN 27 mg/dL (7-18); Calcium,Total 9.1 mg/dL (8.5-10.1); Chloride 105 mmol/L (98-107); Creatinine, Serum 0.93 mg/dL (0.55-1.02); EST Glomerular Filtration Rate 63 mL/min (>60); Est Glom Filt Rate - Afr Amer 76 mL/min (>60); Globulin 3.6 g/dL (2.2-4.2); Glucose 88 mg/dL (74-106); Protein, Total 7.3 g/dL (6.4-8.2); Sodium Level 143 mmol/L (136-145); Thyroid Stim Hormone (TSH) 3.28 uIU/mL (0.358-3.74)
[2018-08-14 11:44] LABS: Hemoglobin A1c 5.9 % (4.2-6.3)
== END ==
PROVIDERS: Family Provider Family Medicine; PCP Family Medicine; Referring Provider Family Medicine; Visit Provider Family Medicine
DX: I10 Essential (primary) hypertension (principal); Z79.899 Other long term (current) drug therapy; E11.9 Type 2 diabetes mellitus without complications
CPT/HCPCS: 36415; 80053; 83036; 84443

== ENCOUNTER 2018-10-29 17:35 | Emergency (ER) | payer MEDICARE, SELFPAY ==
[2018-10-29 17:36] VITALS: BP 159/84; PULSE 111; RESP 18; TEMP 37; O2SAT 99; BMI 36.8
--- NOTE | 2018-10-29 18:17 | RAD_ITS ---
STUDY: X-RAY - PELVIS REASON FOR EXAM: Female, 73 years old. MULTIPLE FALLS/LEFT LEG PAIN TECHNIQUE: One view of the pelvis was obtained. COMPARISON: None. FINDINGS: There is a non-specific bowel gas pattern. Normal visualized soft tissue structures. Normal bilateral iliac wings, sacroiliac joints and visualized sacrum. Normal visualized bilateral superior and inferior pubic rami. There are degenerative changes of the pubic symphysis with articular narrowing and sclerosis. Normal ischial tuberosities. Significant stool is seen on the left. Normal visualized right femoral head. Normal right acetabulum. Normal right hip joint. Normal visualized left femoral head. Normal left acetabulum. Normal left hip joint. RAD/Pelvis 1 or 2 Views IMPRESSION: No acute fracture or dislocation. Electronically Signed: Manjeet Ulrich MD at 19:03 EDT , Service support ,
--- NOTE | 2018-10-29 18:17 | RAD_ITS ---
STUDY: X-RAY - LEFT FEMUR REASON FOR STUDY: Female, 73 years old. Multiple falls and pain. TECHNIQUE: 2 view(s) of the femur. COMPARISON: None. FINDINGS: Normal visualized femur. Normal visualized soft tissue structure. There is no demonstrated fracture or destructive process. RAD/Femur Min 2 Views IMPRESSION: Normal x-ray examination of the femur. Electronically Signed: Manjeet Ulrich MD at 19:01 EDT , Service support ,
--- NOTE | 2018-10-29 18:17 | RAD_ITS ---
STUDY: X-RAY - LEFT KNEE REASON FOR EXAM: Female, 73 years old. Pain. Falls. TECHNIQUE: 4 view(s) of the knee. COMPARISON: 09/15/2017 FINDINGS: Normal visualized distal femur. Normal visualized proximal tibia and fibula. Normal proximal tibiofibular articulation. There is no demonstrated fracture. There is mild degenerative arthrosis of the medial femorotibial compartment. Normal lateral femorotibial compartment. There is mild degenerative arthrosis of the patellofemoral articulation. There is no demonstrated joint effusion. The soft tissue structures are unremarkable. RAD/Knee 4 or More Views IMPRESSION: No change or acute abnormality. Stable mild degenerative changes. Electronically Signed: Manjeet Ulrich MD at 18:55 EDT , Service support ,
--- NOTE | 2018-10-29 18:18 | ED.DCSUM_ITS ---
- ER Visit Summary Date of Service: 10/29/18 Chief Complaint: Recent falls with left hip and thigh pain History of Present Illness: The patient is a 73 F for borderline diabetes, hypertension high cholesterol. Dates she fell twice because her left knee gave out and then again on Tuesday and since then he has had some left hip and thigh pain. Has had problems with her left knee in the past and recently had a steroid injection by her pain management doctor. Denies other injuries. Denies any recent illness. Physical Examination: Older female no acute distress. Vital signs are stable and afebrile. H exam unremarkable atraumatic. Left letter is normal. C-spine nontender. Lungs clear to auscultation bilaterally. Heart regular rhythm no murmur. Chest wall nontender. Abdomen soft and nontender. Pelvic girdle intact. Mild p.o. P left hip and left laceration thigh and femur. No gross bony deformity. No shortening or rotation. Normal flexion extension of the left hip and knee. Lower leg is nontender. Left foot there is minimal bruising at the left small toe but she does not denies any pain. There is no deformity of her foot. Left foot is neurovascular intact. Right lower extremity is unremarkable. Both upper extremities are unremarkable nontender. Back nontender. Neurologically she is awake alert with no focal motor or sensory deficits. Test Results: X-ray one view shows no acute abnormality. Femur x-ray 2 views AP and lateral shows no acute abnormality. Left knee x-ray 4 views shows no acute abnormality. All read both by myself and radiologist. Emergency Department Course and Treatment: Older female falls complaining of left hip and thigh pain. Repeat exam at 1922 she is doing well. I went over x-ray results with her . Treatment Plan: Ice all sore areas. Tylenol for pain. Follow-up with local orthopedic doctor Disposition: Discharge Impression: Recent falls Hip contusion This note was generated with [employer] dictation software. It may contain incorrect words, spelling, and punctuation that were not noted in review of the chart prior to signing ED Disposition - Plan for ED Patient: Referrals: Zia Bolden MD [Primary Care Provider] -
--- NOTE | 2018-10-29 19:27 | ED.DEP ---
ED Disposition - Plan for ED Patient: Disposition: Home or Assisted Living Instructions: Hip Contusion Referrals: Zia Bolden MD [Primary Care Provider] - 1 Week if not improving Additional Instructions: Ice all sore areas. Tylenol for pain. 1 follow-up with your orthopedic doctor either Dr. Aly or Dr. Richards for your left knee problems.
== END 2018-10-29 19:40 | disposition home or self-care (01) ==
PROVIDERS: Emergency Provider Emergency Medicine; Family Provider Family Medicine; PCP Family Medicine
DX: S70.00XA Contusion of unspecified hip, initial encounter (principal); W19.XXXA Unspecified fall, initial encounter; E78.00 Pure hypercholesterolemia, unspecified; I10 Essential (primary) hypertension; R29.6 Repeated falls; E11.9 Type 2 diabetes mellitus without complications
CPT/HCPCS: 72170; 73552; 73564; 99282

== ENCOUNTER 2018-11-03 12:51 | Emergency (ER) | payer MEDICARE, SELFPAY ==
[2018-11-03 12:53] VITALS: BP 159/75; PULSE 104; RESP 18; TEMP 36.9; O2SAT 98; BMI 37.8
--- NOTE | 2018-11-03 14:05 | CT_ITS ---
STUDY: CT LEFT KNEE WITHOUT CONTRAST REASON FOR EXAM: Female, 73 years old. Continued knee pain following recent fall. RADIATION DOSAGE (If Supplied By Facility): CTDIvol = ( 15.35 ) mGy, DLP = ( 468.90 ) mGycm TECHNIQUE: Transaxial CT imaging of the knee was performed. Coronal and sagittal images were reformatted. Individualized dose optimization techniques were used for this CT. COMPARISON: None. FINDINGS: Normal medial femoral condyle and medial tibial plateau. There is preservation of the articular joint space of the medial knee compartment. Normal lateral femoral condyle and lateral tibial plateau. There is preservation of the articular joint space of the lateral knee compartment. Normal proximal tibiofibular articulation. There is no joint effusion. The quadriceps tendon is grossly normal. The patellar tendon is grossly normal. Normal Hoffa's fat pad. There is a 3.9 cm x 4 cm lipoma in the distal aspect of the vastus medialis muscle. CT/Extremity Lower without Contra IMPRESSION: 3.9 cm x 4 Cuco lipoma in the distal portion of the vastus medialis is muscle. No bony normality is seen. Electronically Signed: Smith Ceballos, at 14:57 EDT , Service support ,
--- NOTE | 2018-11-03 14:06 | ED.DCSUM_ITS ---
History of Present Illness Chief Complaint: Lower Extremity Injury Informant: Patient Onset: Days Narrative: Patient presents to the ED with left knee pain. Approximately a week ago, she had several falls due to her left knee giving out. She states since then she has had a severe amount of pain. She is enrolled in pain management for arthritis and is treated with gabapentin and tramadol. She been taking these medications as prescribed in addition to Tylenol. She has been seen at an urgent care and by her orthopedic physician since these falls. She has had 2 x- rays of her knee that were unremarkable. She states that an outpatient CT is ordered by her orthopedic physician. She has been using a walker and a wheelchair to get around at home. Past Medical History - Allergies and Home Meds Allergies/Adverse Reactions: Allergies hydrocodone Allergy (Verified 11/03/18 12:52) Other metronidazole [From Flagyl] Allergy (Verified 11/03/18 12:52) Other Primary Care Physician: Zia Bolden MD [Primary Care Provider] - Surgical History: - - D and C Smoking Status: Never smoker - Family History Maternal Family History: Reports: Cancer - Colon cancer Paternal Family History: Reports: Heart Disease - from ID at age 57 Review of Systems General: Denies: Chills, Fever, Sweats Eyes: Denies: Visual changes - bilaterally, Diplopia ENT: Denies: Rhinorrhea, Sore throat Cardiovascular: Denies: Chest pain, Palpitations Respiratory: Denies: Dyspnea, Cough, Dyspnea on exertion Gastrointestinal: Denies: Abdominal pain, Nausea, Vomiting, Diarrhea, Melena, Hematochezia Genitourinary: Denies: Dysuria, Hematuria, Frequency Musculoskeletal: Reports: - - Left knee pain. Denies: Back pain, Extremity Pain Skin: Denies: Rash, Wounds Neurological: Denies: Headache, Weakness, Numbness Physical Exam Vital Signs/Narrative: Vital Signs Temp Pulse Resp BP Pulse Ox 11/03/18 12:53 98.4 F 104 H 18 159/75 H 98 General: Well nourished, Well developed, No Acute Distress Head: Normocephalic, Atraumatic Eyes: Perrl, EOMI ENT: Moist mucous membranes, No rhinorrhea Neck: Supple, Nontender Cardiovascular: Regular rate, Regular rhythm, No murmurs Respiratory: No distress, CTA bilaterally, Chest nontender Abdomen: Soft, Nontender, Nondistended, Normal bowel sounds Back: Nontender, Normal Inspection Extremities: - - To palpation over left anterior knee. Full passive range of motion. No erythema, edema, ecchymosis, warmth to palpation. No posterior knee or calf pain. No signs/symptoms concerning for septic joint. Skin: Normal color, No rash Neurological: Alert, Oriented x3, Cranial nerves II-XII grossly intact, Normal Strength, Normal Sensation Psychological: Normal affect, Normal Mood Diagnostic/Tx/Re-eval - Medical Decision Making She presents to the ED with left knee pain after couple falls last week. Patient was given oxycodone p.o. for analgesia. CT of the left knee shows no acute abnormalities. At this time, think it is safe for the patient be discharged home. As she is already enrolled in pain management, I discussed with the patient and her family that I cannot prescribe her any additional oral analgesics however I did provide her with prescription for Lidoderm patches. She will follow-up with her orthopedic physician. She is educated on signs/symptoms to return to the ED. She is provided discharge instructions and agreeable to plan. Impression: Left knee pain Disposition: Home stable ED Disposition - Plan for ED Patient: Disposition: Home or Assisted Living Diagnosis: Knee pain, left Instructions: Knee Sprain Prescriptions: Lidocaine [Lidoderm Patch] 1 patch TOPICAL DAILY #30 patch Prescription Printed Referrals: Zia Bolden MD [Primary Care Provider] -
[2018-11-03] MEDS: oxyCODONE 5 MG Tablet PO (14:24)
[2018-11-03] MEDS: Lidocaine 5% Patch 1 PATCH TOPICAL (16:06)
[2018-11-03 16:07] VITALS: RESP 16
== END 2018-11-03 16:10 | disposition home or self-care (01) ==
PROVIDERS: Emergency Provider Physician Assistant; Family Provider Family Medicine; PCP Family Medicine
DX: M25.562 Pain in left knee (principal); M19.90 Unspecified osteoarthritis, unspecified site; Z88.5 Allergy status to narcotic agent; Z88.1 Allergy status to other antibiotic agents
CPT/HCPCS: 73700; 99284

== ENCOUNTER → 2019-01-26 | Outpatient (CLI) | payer MEDICARE, SELFPAY ==
[2019-01-26 16:22] LABS: Hemoglobin A1c 5.8 % (4.2-6.3)
[2019-01-26 16:33] LABS: ALB/GLOB Ratio 1.2 RATIO (0.9-2.4); AST(SGOT) 22 U/L (15-37); Alanine Aminotransfer ALT/SGPT 24 U/L (13-56); Alkaline Phosphatase 62 U/L (45-117); Anion Gap 2 (5-15); BUN 23 mg/dL (7-18); BUN/Creat Ratio 24.2 RATIO (10-20); Calcium,Total 8.9 mg/dL (8.5-10.1); Chloride 103 mmol/L (98-107); Creatinine, Serum 0.95 mg/dL (0.55-1.02); EST Glomerular Filtration Rate 61 mL/min (>60); Est Glom Filt Rate - Afr Amer 74 mL/min (>60); Globulin 3.3 g/dL (2.2-4.2); Glucose 101 mg/dL (74-106); Potassium 3.8 mmol/L (3.5-5.1); Protein, Total 7.3 g/dL (6.4-8.2); Sodium Level 138 mmol/L (136-145); Thyroid Stim Hormone (TSH) 3.54 uIU/mL (0.358-3.74)
== END | disposition home or self-care (01) ==
LOC: LABSPEC 15:44
PROVIDERS: Family Provider Family Medicine; PCP Family Medicine; Referring Provider Family Medicine; Visit Provider Family Medicine
DX: E11.9 Type 2 diabetes mellitus without complications (principal); I10 Essential (primary) hypertension; Z79.899 Other long term (current) drug therapy
CPT/HCPCS: 80053; 83036; 84443

== ENCOUNTER → 2019-08-01 14:44 | Outpatient (CLI) | payer MEDICARE, SELFPAY ==
--- NOTE | 2019-08-01 14:55 | CT_ITS ---
STUDY: CT SCAN HIP LEFT REASON FOR EXAM: Female, 74 years old. LEFT HIP PAIN AND NUMBNESS, HAD A FALL IN OCT 2018 RADIATION DOSAGE (If Supplied By Facility): CTDIvol = ( 24.25 ) mGy, DLP = ( 1559.94 ) mGycm. Individualized dose optimization techniques were used for this CT.? TECHNIQUE: Multiple axial tomographic images of the left hip joint were obtained without intravenous contrast administration. Coronal and sagittal reconstruction was obtained as well. COMPARISON: None. FINDINGS: Mild degree of joint space narrowing of the hip joint. Focal calcific deposits overlying the greater trochanter of the proximal left femur suggestive of possible calcific tendinitis. There is no evidence of fracture or subluxation. 7 subarticular degenerative changes of the symphysis pubis. 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 Electronically Signed: Smith Ceballos, at 15:14 EDT , Service support ,
== END ==
PROVIDERS: PCP Family Medicine; Referring Provider Anesthesiology Pain Medicine; Visit Provider Anesthesiology Pain Medicine
DX: M25.559 Pain in unspecified hip (principal)
CPT/HCPCS: 73700

== ENCOUNTER → 2019-08-16 15:39 | Outpatient (CLI) | payer MEDICARE, SELFPAY ==
[2019-08-16 16:54] LABS: AST(SGOT) 20 U/L (15-37); Alanine Aminotransfer ALT/SGPT 25 U/L (13-56); Albumin, Serum 3.6 g/dL (3.2-5.0); Alkaline Phosphatase 72 U/L (45-117); Anion Gap 6 (5-15); BUN 22 mg/dL (7-18); BUN/Creat Ratio 24.5 RATIO (10-20); Chloride 103 mmol/L (98-107); Cholesterol 164 mg/dL (200); EST Glomerular Filtration Rate 65 mL/min (>60); Est Glom Filt Rate - Afr Amer 79 mL/min (>60); Globulin 3.6 g/dL (2.2-4.2); Glucose 111 mg/dL (74-106); High Density Lipoprotein 59 mg/dL; Potassium 3.8 mmol/L (3.5-5.1); Protein, Total 7.2 g/dL (6.4-8.2); Sodium Level 142 mmol/L (136-145); Triglycerides 77 mg/dL; Very Low Density Lipoprotein 15 mg/dL (5-40)
[2019-08-16 16:56] LABS: Hemoglobin A1c 5.8 % (3.8-5.6)
[2019-08-16 16:59] LABS: Microalbumin,Random Urine 8.6 mg/L (NO RANGE EST.); Microalbumin:Creatinine Ratio 8.1 mg/g CRE (<30 mg/g CRE)
[2019-08-21 04:49] LABS: LDL, Direct 120295 89
== END ==
PROVIDERS: PCP Family Medicine; Referring Provider Family Medicine; Visit Provider Family Medicine
DX: E11.9 Type 2 diabetes mellitus without complications (principal)
CPT/HCPCS: 80053; 80061; 82043; 82570; 83036; 83721

== ENCOUNTER → 2019-09-27 14:39 | Outpatient (CLI) | payer MEDICARE, SELFPAY ==
--- NOTE | 2019-09-27 14:42 | CT_ITS ---
STUDY: CT LUMBAR SPINE WITHOUT CONTRAST REASON FOR EXAM: Female, 74 years old. CHRONIC LOWER BACK PAIN RADIATION DOSAGE (If Supplied By Facility): CTDIvol = ( 30.00 ) mGy, DLP = ( 302.15 ) mGycm TECHNIQUE: The patient was scanned in a multi detector CT scanner. High resolution transaxial imaging was performed. Images were obtained from L1 to S1 vertebrae. Sagittal and coronal images were reconstructed. Individualized dose optimization techniques were used for this CT. COMPARISON: None FINDINGS: Normal lumbar lordosis. There is no substantial scoliosis. Spondylolysis. There is a transitional vertebrae at the lumbosacral junction with partial sacralization of the L5 vertebra on the right side. There is a marked degree of disc space narrowing and spondylosis at the T12-L1 level. L1-2: Normal endplates. Normal disc height and morphology. Normal bilateral facet joints. Normal central canal and bilateral lateral recesses. Normal bilateral intervertebral neural foramina. L2-3: Normal endplates. Normal disc height and morphology. Normal bilateral facet joints. Normal central canal and bilateral lateral recesses. Normal bilateral intervertebral neural foramina. L3-4: Moderate degree of disc space narrowing and disc degeneration at the L3-L4 level. Mild degree of diffuse posterior disc bulge slightly worse on the left side narrowing of the left intervertebral foramen. Facet joint osteoarthritis. L4-5: Moderate degree of disc space narrowing and disc degeneration. Diffuse posterior disc bulge worse on the left side with narrowing of the left intervertebral foramen. There is also evidence of posterior spondylosis with a left-sided midline. Facet joint hypertrophy. L5-S1: Mild degree of diffuse posterior disc bulge. Facet joint osteoarthritis and hypertrophy. No significant stenosis is seen. Atherosclerotic calcification of the abdominal aorta. CT/Spine Lumbar without Contrast IMPRESSION: Multilevel degenerative changes, as described above. Electronically Signed: Smith Ceballos, at 15:36 EDT , Service support ,
== END ==
PROVIDERS: PCP Family Medicine; Referring Provider Anesthesiology Pain Medicine; Visit Provider Anesthesiology Pain Medicine
DX: M51.37 Other intervertebral disc degeneration, lumbosacral region (principal); M48.07 Spinal stenosis, lumbosacral region
CPT/HCPCS: 72131

== ENCOUNTER 2019-10-12 06:24 | Day surgery (SDC) | payer MEDICARE, SELFPAY ==
--- NOTE | 2019-10-12 | COLBX_PTH ---
PATIENT: BILLY ANDREWS LOC: EN U#:[id number] AGE/SX: 74/F ROOM: RE10/12/[address]: Dr. Koby Waggoner MD : 1945 BED: DIS: 10/12/2019 SPEC #: [id number] RECD: 10/12/19 13:48 STATUS: CINDY HELENA #: [id number] ANTONIO: 10/12/19 00:[address]: Koby Waggoner DEPT: SURGICAL PATHOLOGY RECD BY: Obi Mcduffie ENTERED: 10/12/19 13:48 SP TYPE: COLON BX OTHR DR: Dr. Zia Bolden MD Tissues: Transverse colon Procedures: Surgery Specimen Level IV HEADER OPERATION: Colonoscopy - open access (MAC) PRE-OP DIAGNOSIS: Screening TISSUE SUBMITTED: Proximal transverse colon polyp biopsy MICROSCOPIC DIAGNOSIS Proximal transverse colon polyp, biopsy: Fragments of benign colonic mucosa. See comment. AM:parag 8/31/20 COMMENT Neither hyperplastic nor adenomatous change is identified. MICROSCOPIC DESCRIPTION Slides are reviewed. GROSS DESCRIPTION Received in fixative is one container labeled with the patient's name and designated proximal transverse colon polyp. The specimen consists of two irregular fragments of light gibson soft tissue that in aggregate measure 0.5 x 0.3 x 0.1 cm. The specimen is totally submitted in one cassette. / AM:parag 10/12/19 TC:5 CPT: 98386
[2019-10-12 06:54] VITALS: BP 147/75; PULSE 77; RESP 16; TEMP 37.2; O2SAT 92; BMI 38.0
[2019-10-12] MEDS: Lactated Ringers 1,000 ML 100 ML IV (07:06)
--- NOTE | 2019-10-12 07:34 | HP.PCM_ITS ---
Problem List (1) Screening for intestinal cancer Status: Acute History of Present Illness Date of Admission: 10/12/19 The patient is a 74 year old F who presents for a screening colonoscopy. She has a personal history of colon polyps and her mother had colon cancer. The patient's most recent colonoscopy was August 06, 2014. Hemorrhoids were found. Severe diverticulosis of the sigmoid colon. She denies any abdominal pain. She denies bright red blood per rectum or melena. No weight change. Past Medical History Allergies hydrocodone Allergy (Verified 10/12/19 06:48) Other metronidazole [From Flagyl] Allergy (Verified 10/12/19 06:48) Other soy sauce Allergy (Uncoded 10/12/19 06:48) Food Allergy tightness in throat Home Medications: Ambulatory Orders Medication Instructions Recorded Gabapentin [Neurontin] 300 mg PO BID 08/14/17 Hydrochlorothiazide [Hctz] 25 mg PO DAILY 08/14/17 Omeprazole 20 mg PO DAILY 08/14/17 Tramadol HCl [Ultram] 50 mg PO BID 08/14/17 Meloxicam 15 mg PO DAILY #0 08/15/17 Biotin 5 mg PO DAILY 10/29/18 Cholecalciferol (Vitamin D3) 2,000 unit PO DAILY 10/29/18 [Vitamin D3] Diphenhydramine HCl [Sleep Aid] 25 mg PO QHS 10/29/18 Losartan Potassium [Cozaar] 50 mg PO DAILY 10/29/18 Magnesium 250 mg PO DAILY 10/29/18 Mirabegron [Myrbetriq] 25 mg PO DAILY 10/29/18 Multivitamins,Therapeutic 1 tab PO DAILY 10/29/18 [Multivitamin] Pravastatin [Pravachol] 20 mg PO QHS 10/29/18 Trospium Chloride [Sanctura Xr] 60 mg PO DAILY 10/29/18 Surgical History: - - D and C Psychiatric History: No pertinent psych hx 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 Smoking Status: Never smoker Tobacco Use: Non-smoker - *Family History Maternal History Items: Cancer - Colon cancer Paternal History Items: Heart Disease - from [place] at age 57 Review of Systems Constitutional: Denies: Fever Cardiovascular: Denies: Chest Pain Respiratory: Denies: Cough, Hemoptysis Gastrointestinal: Denies: Abdominal Pain Psychiatric: Denies: Depression Endocrine: Denies: Change in Body Habitus VTE Information - Inpt Only VTE Present on Admission: No Patient Problems: Active and Suspected Problems Screening for intestinal cancer (Acute) - Physical Exam Vitals/I&O's: Vital Signs Temp Pulse Resp BP Pulse Ox 98.9 F 77 16 147/75 H 92 10/12/19 06:54 10/12/19 06:54 10/12/19 06:54 10/12/19 06:54 10/12/19 06:54 Oxygen Delivery Method Room Air Weight: 201 lb 0.985 oz Body Mass Index (BMI) 38.0 General: Alert, Oriented x3, Cooperative, No apparent distress Oral: Moist Mucosa Lungs: Clear to auscultation, Normal air movement Cardiovascular: Regular rate, Regular Rhythm Abdomen: Bowel Sounds Present, Soft, Non Tender Extremities: No Calf Tenderness Psych/Mental Status: Normal Affect Current Medications Lactated Ringer's () 1,000 mls @ 100 mls/hr IV .Q10H AWILDA Last Admin: 10/12/19 07:06 Dose: 100 mls/hr Documented by: Assessment/Plan All Active Problems Chest pain (Acute) Screening for intestinal cancer (Acute) The patient presents via open access for colonoscopy based upon family history of colon cancer in her mother. She is aware of the technique, benefit, risk, alternatives. She has had an opportunity to ask and have questions answered. We will proceed as noted. Koby Waggoner M.D., F.A.C.S. Procedure Criteria Procedure Type: Elective COVID Risk Discussion: The surgeon/proceduralist and patient have discussed in detail the risk of exposure to and/or potential harm posed by the COVID-19 virus with having a surgery/procedure at this time versus the risk of delaying the surgery/procedure. It is not possible to know either the risk of delaying the surgery or procedure or chance of getting an infection with perfect accuracy, but a joint decision was made between the patient and the surgeon/proceduralist to proceed at this time with the scheduled surgery/procedure as indicated on the consent form.
[2019-10-12 07:58] VITALS: BP 116/66; BP 147/75; PULSE 83; RESP 16; TEMP 36.8; O2SAT 100
[2019-10-12 08:00] VITALS: BP 147/75; BP 95/83; PULSE 82; RESP 16; O2SAT 100
--- NOTE | 2019-10-12 08:00 | OP.COLON_ITS ---
Patient Name: Sheeba Choi Procedure Date: 10/12/2019 7:21 AM Date of : 1945 Age: 74 Procedure: Colonoscopy Indications: Family history of colon cancer in a first-degree relative Providers: Koby Waggoner MD Referring MD: Zia Bolden Medicines: See the Anesthesia note for documentation of the administered medications Patient Profile: Last Colonoscopy: July 2014. Complications: No immediate complications. Procedure: Pre-Anesthesia Assessment: - Prior to the procedure, a History and Physical was performed, and patient medications and allergies were reviewed. The patient's tolerance of previous anesthesia was also reviewed. The risks and benefits of the procedure and the sedation options and risks were discussed with the patient. All questions were answered, and informed consent was obtained. Prior Anticoagulants: The patient has taken no previous anticoagulant or antiplatelet agents. ASA Grade Assessment: II - A patient with mild systemic disease. After reviewing the risks and benefits, the patient was deemed in satisfactory condition to undergo the procedure. After I obtained informed consent, the scope was passed under direct vision. Throughout the procedure, the patient's blood pressure, pulse, and oxygen saturations were monitored continuously. The Colonoscope was introduced through the anus and advanced to the cecum, identified by appendiceal orifice and ileocecal valve. The colonoscopy was performed without difficulty. The patient tolerated the procedure well. The quality of the bowel preparation was adequate to identify polyps. The ileocecal valve was photographed. Scope In: 7:41:19 AM Scope Withdrawal Time 0 hours 8 minutes 17 seconds Scope Out: 7:52:57 AM Total Procedure Duration Time 0 hours 11 minutes 38 seconds Findings: Hemorrhoids were found on perianal exam. A 5 mm polyp was found in the proximal transverse colon. The polyp was sessile. The polyp was removed with a cold biopsy forceps. Resection and retrieval were complete. Multiple diverticula were found in the entire colon. Impression: - Hemorrhoids found on perianal exam. - Vague One 5 mm polyp in the proximal transverse colon, removed with a cold biopsy forceps. Resected and retrieved. - Diverticulosis in the entire examined colon. Recommendation: - Discharge patient to home. - Resume previous diet. - Continue present medications. - Telephone my office for pathology results in 1 week. - Repeat colonoscopy in 5 years for surveillance based on pathology results. Procedure Code(s): --- Professional --- 57057, Colonoscopy, flexible; with biopsy, single or multiple Diagnosis Code(s): --- Professional --- K64.9, Unspecified hemorrhoids D12.3, Benign neoplasm of transverse colon (hepatic flexure or splenic flexure) Z80.0, Family history of malignant neoplasm of digestive organs K57.30, Diverticulosis of large intestine without perforation or abscess without bleeding CPT copyright 2017 [employer] [place] [employer]. All rights reserved. The codes documented in this report are preliminary and upon ludlow machine operator review may be revised to meet current compliance requirements. Koby Waggoner MD 10/12/2019 7:59:55 AM This report has been signed electronically. Number of Addenda: 0 Note Initiated On: 10/12/2019 7:21 AM
--- NOTE | 2019-10-12 08:00 | OP.CCLET_ITS ---
10/12/2019 Zia Bolden Re : Colonoscopy procedure for Sheeba Bolden This procedure was performed on Saturday, October 12, 2019. My impressions and recommendations are as follows: Impressions : - Hemorrhoids found on perianal exam. - Vague One 5 mm polyp in the proximal transverse colon, removed with a cold biopsy forceps. Resected and retrieved. - Diverticulosis in the entire examined colon. Recommendations : - Discharge patient to home. - Resume previous diet. - Continue present medications. - Telephone my office for pathology results in 1 week. - Repeat colonoscopy in 5 years for surveillance based on pathology results. My findings are described in the full procedure note, which is enclosed. If I can be of further assistance, please feel free to contact me at Doctor phone number(s): Work: . Sincerely, Koby Waggoner MD 10/12/2019 7:59:55 AM This report has been signed electronically.
[2019-10-12 08:05] VITALS: BP 112/54; BP 147/75; PULSE 80; RESP 16; O2SAT 98
[2019-10-12 08:10] VITALS: BP 109/70; BP 147/75; PULSE 78; RESP 16; TEMP 36.8; O2SAT 99
[2019-10-12 08:51] VITALS: BP 147/75
== END 2019-10-12 08:53 | disposition home or self-care (01) ==
LOC: EN 06:25 → AC 06:26
PROVIDERS: Anesthesiology; PCP Family Medicine; Referring Provider Family Medicine; Visit Provider Surgery
PROC: 0DJD8ZZ Inspection of Lower Intestinal Tract, Via Natural or Artificial Opening Endoscopic (ICD-10-PCS; CPT 45378; principal; 2019-10-12 07:25)
DX: D12.3 Benign neoplasm of transverse colon (principal); K64.9 Unspecified hemorrhoids; K57.30 Diverticulosis of large intestine without perforation or abscess without bleeding; Z80.0 Family history of malignant neoplasm of digestive organs; Z79.1 Long term (current) use of non-steroidal anti-inflammatories (NSAID); Z82.49 Family history of ischemic heart disease and other diseases of the circulatory system; Z87.19 Personal history of other diseases of the digestive system; Z88.1 Allergy status to other antibiotic agents; Z88.5 Allergy status to narcotic agent
CPT/HCPCS: 45380; 87635; 88305; 94799; J7120; J2405; U0003

== ENCOUNTER → 2020-06-02 15:06 | Outpatient (CLI) | payer MEDICARE, SELFPAY ==
[2020-06-02 16:09] LABS: Hemoglobin A1c 5.6 % (3.8-5.6)
[2020-06-02 16:14] LABS: Microalbumin,Random Urine 10.3 mg/L (NO RANGE EST.); Microalbumin:Creatinine Ratio 6.5 mg/g CRE (<30 mg/g CRE)
== END ==
PROVIDERS: PCP Family Medicine; Visit Provider Family Medicine
DX: E11.9 Type 2 diabetes mellitus without complications (principal)
CPT/HCPCS: 82043; 82570; 83036

== ENCOUNTER → 2020-06-06 12:58 | Outpatient (CLI) | payer MEDICARE, SELFPAY ==
[2020-06-06 13:05] LABS: Bacteria 0 SEEN /hpf (None Seen); Mucous, Urine 0 SEEN /hpf (<or=2+); Red Blood Cells-Urine 0 SEEN /hpf (0-5)
[2020-06-06 13:45] LABS: Color, Urine Yellow (Yellow); Glucose, Dipstick Normal (Normal); Ketone-Dipstick Negative (Negative); Leukocyte Esterase-Dipstick 500 /ul (Negative); Nitrite-Dipstick Negative (Negative); Occult Blood-Urine 25 /ul (Negative); Protein-Dipstick Negative (Negative); Urine Bilirubin Dipstick Negative (Negative); Urine Clarity Sl. Cloudy (Clear); Urine Urobilinogen Normal (Normal); Urine pH 6.5 (5.0 - 8.0)
[2020-06-06 13:50] LABS: Squamous Epithelial Cells - UA 0-5 SEEN /hpf (5-10); White Blood Cells 0-5 SEEN /hpf (0-5)
== END ==
PROVIDERS: PCP Family Medicine; Referring Provider Family Medicine; Visit Provider Family Medicine
DX: N32.81 Overactive bladder (principal)
CPT/HCPCS: 81001

== ENCOUNTER → 2020-11-17 15:41 | Outpatient (CLI) | payer MEDICARE, SELFPAY ==
[2020-11-17 16:11] LABS: Hematocrit 41.4 % (37-47); Hemoglobin 13.2 g/dL (12.0-15.0); Mean Corp Hgb Conc 31.9 g/dL (32-36); Mean Corpuscular Hgb 29.4 pg (27.0-32.0); Mean Corpuscular Volume 92.2 fL (81-99); Mean Platelet Vol. 11.9 fl (6.2-12.0); Platelet Count 270 K/mm3 (150-450); RBC Distribution Width CV 15.2 % (11.6-14.6); RBC Distribution Width SD 51.5 fl (35.1-43.9); Red Blood Count 4.49 M/mm3 (4.2-5.4); White Blood Count 6.1 K/mm3 (4.4-11.0)
[2020-11-17 16:20] LABS: ALB/GLOB Ratio 0.9 RATIO (0.9-2.4); AST(SGOT) 26 U/L (15-37); Alanine Aminotransfer ALT/SGPT 24 U/L (13-56); Albumin, Serum 3.8 g/dL (3.2-5.0); Alkaline Phosphatase 74 U/L (45-117); Anion Gap 6 (5-15); BUN 23 mg/dL (7-18); BUN/Creat Ratio 21.3 RATIO (10-20); Calcium,Total 9.7 mg/dL (8.5-10.1); Chloride 103 mmol/L (98-107); Cholesterol 192 mg/dL (200); Creatinine, Serum 1.08 mg/dL (0.55-1.02); EST Glomerular Filtration Rate 53 mL/min (>60); Est Glom Filt Rate - Afr Amer 64 mL/min (>60); Globulin 4.1 g/dL (2.2-4.2); Glucose 96 mg/dL (74-106); High Density Lipoprotein 63 mg/dL; Potassium 4.1 mmol/L (3.5-5.1); Protein, Total 7.9 g/dL (6.4-8.2); Sodium Level 141 mmol/L (136-145); Triglycerides 121 mg/dL; Very Low Density Lipoprotein 24 mg/dL (5-40)
[2020-11-17 16:34] LABS: Microalbumin,Random Urine 13.8 mg/L (NO RANGE EST.); Microalbumin:Creatinine Ratio 8.4 mg/g CRE (<30 mg/g CRE)
[2020-11-17 16:49] LABS: Hemoglobin A1c 5.9 % (3.8-5.6)
== END ==
PROVIDERS: PCP Family Medicine; Visit Provider Family Medicine
DX: E11.9 Type 2 diabetes mellitus without complications (principal); E78.2 Mixed hyperlipidemia
CPT/HCPCS: 80053; 80061; 82043; 82570; 83036; 85027